=== PATIENT | female | born 1955 | race Caucasian/White ===

== ENCOUNTER 2020-12-26 15:14 | Observation (INO) ==
[2020-12-26 15:49] LABS: ABS Eosinophils 0.1 10^3/ul (0-0.6); ABS Lymphocytes 1.2 10^3/ul (1.0-4.8); ABS Monocytes 0.6 10^3/ul (0-0.8); ABS Neutrophils 7.4 10^3/ul (1.5-7.7); Eosinophil % 0.9 %; Hematocrit 45 % (35-47); Hemoglobin 15.2 g/dL (12.0-16.0); Lymphocyte % 12.8 %; Mean Corpuscular HGB Conc 34 g/dL (31-36); Mean Corpuscular Hemoglobin 31 pg (27-31); Mean Corpuscular Volume 92 fL (80-97); Mean Platelet Volume 8.7 fL (7.4-10.4); Nucleated Red Blood Cells % 0.1; Platelet Count 168 10^3/uL (150-450); Red Blood Count 4.92 10^6 /uL (3.70-4.87); Red Cell Distribution Width 13 % (10-15); White Blood Count 9.4 10^3/uL (3.5-10.8)
[2020-12-26 16:01] LABS: INR 0.92 (0.86-1.15)
[2020-12-26 16:06] LABS: Albumin 4.5 g/dL (3.2-5.2); Albumin/Globulin Ratio 1.7 (1-3); Calcium 9.5 mg/dL (8.6-10.3); Globulin 2.6 g/dL (2-4); Potassium 3.8 mmol/L (3.5-5.0); Total Bilirubin 0.6 mg/dL (0.2-1.0); Total Protein 7.1 g/dL (6.4-8.9)
[2020-12-26 16:07] LABS: Troponin I 0.01 ng/mL (<0.03)
[2020-12-26 16:34] LABS: TSH Ultra Thyroid Stim Horm 4.03 mcIU/mL (0.34-5.60)
[2020-12-26] MEDS ORDERED: NS 0.9% 1000 ml BAG 1,000 ML IV ONE (17:26)
[2020-12-26] MEDS ORDERED: Nitroglycerin 0.6 mg TAB SL ONE (17:26)
[2020-12-26] MEDS ORDERED: Nitro 2% OINT (Nitroglycerin) 1 INCH/PAK TOPICAL ONE (18:01)
[2020-12-26] MEDS ORDERED: Al Hydrox/Mg Hydrox/Simet LIQ 30 ML UDC PO ONE (18:01)
[2020-12-26 19:15] LABS: Rapid COVID-19 Molecular Undetected (Undetected)
[2020-12-26 19:34] LABS: Troponin I 0.04 ng/mL (<0.03)
[2020-12-26] MEDS ORDERED: Iohexol 350 (CONTRAST) 500 ML MDV IV ONE (19:39)
[2020-12-26] MEDS ORDERED: Metoprolol Tartrate 5 mg VIAL 5 ml VIAL (1 mg/ml) IV ONE (19:55)
[2020-12-26] MEDS: Enoxaparin 40 MG/0.4 ML SYR SUBCUT SCH (21:05)
[2020-12-26 21:09] LABS: HDL Cholesterol 66.4 mg/dL; Magnesium 1.9 mg/dL (1.9-2.7)
[2020-12-27 01:29] LABS: Troponin I 0.03 ng/mL (<0.03)
[2020-12-27] MEDS ORDERED: Regadenoson 0.4 MG/5 ML SYRINGE ONE (16:02)
[2020-12-27] MEDS: Enoxaparin 40 MG/0.4 ML SYR SUBCUT SCH (20:23)
[2020-12-28] MEDS ORDERED: Aspirin EC 81 mg TAB.EC (enteric coated) PO SCH (09:00)
[2020-12-28] MEDS ORDERED: Perflutren Lipid Microsphere 3 ML VIAL ONE (09:39)
[2020-12-28 12:22] VITALS: BP 144/72
== END 2020-12-28 15:00 | disposition home or self-care (01) ==
LOC: ED 15:14 → INTOOBSV 19:28 → MEDTELE 19:28 → SUATTDRO 19:28
PROVIDERS: ADMIT Internal Medicine; ATTEND Internal Medicine